=== PATIENT | male | born 1995 | race Caucasian/White ===

== ENCOUNTER 2019-11-30 12:32 | Inpatient (IN) | payer SELFPAY ==
[2019-11-30 12:33] VITALS: BMI 22.9
--- NOTE | 2019-11-30 12:38 | ED_ITS ---
Entered by Marlene Bahena, acting as scribe for HPI - Psych General: Chief Complaint: Psychiatric Symptoms Stated Complaint: SI/ ATTEMPT TO HARM Time Seen by Provider: 11/30/19 12:38 Source: patient and EMS Mode of arrival: EMS Limitations: no limitations History of Present Illness: HPI Narrative: 24 yo male presents with plans that he does not want to live any more. pt states he has had depression. pt states this started months ago. pt has cuts to R arm and R wrist. pt has been seen in the hospital for the same symptoms recently. pt denies any other symptoms at this time. pt states last alcohol use was 2 days ago. MD complaint: suicidal ideation and feels depressed Onset (ago): month(s) (states been months) Duration: constant History of same: Yes Relieving factors: none Exacerbating factors: none Context: recent alcohol abuse Associated psychiatric symptoms: depression and suicidal ideation Associated symptoms: Reports suicidal ideation (cuts to R wrist and R arm ) Treatments prior to arrival: none Review of Systems General: Reports: 10 or more systems reviewed and unremarkable except in HPI and below Psych: Reports: suicidal ideation (cuts to R wrist and R arm ) PFSH ED PFSH: Statuses (acute, chronic, etc) shown below reflect problem list status as previously entered and may not be historically accurate Social History Smoking and tobacco status: current some day smoker Physical Exam Const: COMMON NORMALS: no apparent distress, average body habitus, oriented x3, no limitations, healthy appearing, alert and well nourished HENMT: COMMON NORMALS: normocephalic, head/scalp atraumatic, hearing grossly normal bilaterally, external ears normal, EAC's normal, TM's normal bilaterally, external nose normal, nasal mucous membranes and turbinates normal, moist oral mucous membranes, oropharynx normal, dentition normal and gingiva normal HEAD & SCALP: normocephalic and atraumatic NOSE: external nose normal and nasal mucous membranes and turbinates normal EXTERNAL EAR: Yes external ears normal EXTERNAL AUDITORY CANAL: EAC's normal TYMPANIC MEMBRANE: TM's normal bilaterally Eye: COMMON NORMALS: PERRL, EOMs intact bilaterally, conjunctivae normal, no scleral icterus, no papilledema, normal visual lockhart by confrontation and fundi normal bilaterally CONJUNCTIVA: Yes conjunctivae normal PUPIL: Yes PERRL DIRECT OPHTHALMOSCOPY: Yes no papilledema and Yes fundi normal bilaterally Neck/C-Spine: COMMON NORMALS: full ROM, no lymphadenopathy, supple, no me ningeal signs, no JVD, thyroid normal and no carotid bruits THYROID: thyroid normal Chest: COMMONS NORMALS: inspection of chest normal and palpation of chest normal Resp: COMMON NORMALS: normal respiratory effort, no retractions, no use of accessory muscles, clear to auscultation bilaterally and percussion normal AUSCULTATION: clear to auscultation bilaterally PERCUSSION: percussion normal Cardio: COMMON NORMALS: no JVD, regular rate, regular rhythm, S1 normal heart sound, S2 normal heart sound, no gallops, no clicks, no murmurs, no rub and peripheral pulses 2+ throughout RATE: regular rate RHYTHM: regular rhythm HEART SOUNDS: S1 normal and S2 normal PERIPHERAL PULSES: pulses 2+ throughout GI: COMMON NORMALS: normal to inspection, nondistended, normoactive bowel sounds, soft to palpation, non-tender, no hepatosplenomegaly, no masses and no bruits PALPATION: Yes soft and Yes no hepatosplenomegaly : COMMON NORMALS: Yes no CVA tenderness BLADDER/KIDNEY EXAM: Yes no CVA tenderness Back/Pelvis: COMMON NORMALS: no CVA tenderness, thoracic and lumbar spine normal to inspection, no thoracic nor lumbar tenderness, thoraco-lumbar ROM normal and straight leg raise negative bilaterally Extremity: COMMON NORMALS: normal to inspection, full ROM, normal capillary refill, no joint enlargement, no clubbing, cyanosis or edema, no calf tenderness and no pedal edema Neuro: COMMON NORMALS: oriented x3 SENSORIUM/ORIENTATION: Yes alert MENINGEAL SIGNS: Yes no meningeal signs Psych: COMMON NORMALS: thought process normal and speech normal ATTITUDE: Yes calm ACTIVITY/MOTOR BEHAVIOR: Yes fidgeting SPEECH: Yes normal speech MOOD & AFFECT: Yes depressed mood THOUGHT PROCESS: normal thought process Skin: COMMON NORMALS: no rashes or lesions noted, no wounds, skin turgor normal, no jaundice, no petechiae and no mottling GENERAL SKIN EXAM: no rashes or lesions noted and turgor normal MDM - Psych Lab Data: Labs: Lab Results 11/30/19 11/30/19 11/30/19 Range/Units 12:48 12:48 12:52 WBC 18.3 H (4.0-10.0) 10^3/ uL RBC 5.15 (4.1-5.3) 10^6/u L Hgb 15.9 (11.7-16.6) g/dL Hct 47.2 (42.0-52.0) % MCV 91.7 (80-94) fL MCH 30.9 (28.0-34.0) pg MCHC 33.7 (30.0-36.0) g/dL RDW 14.8 (12.1-15.1) % Plt Count 308 (130-400) 10^3/c mm MPV 10.1 (7.4-10.4) fL Neut % (Auto) 68.8 % Lymph % (Auto) 18.5 % [place] % (Auto) 8.7 % Eos % (Auto) 0.8 % Baso % (Auto) 0.8 % Neut # (Auto) 12.6 H (1.8-7.7) 10^3/u L Lymph # (Auto) 3.4 (0.8-4.8) 10^3/u L [place] # (Auto) 1.6 H (0.2-0.9) 10^3/u L Eos # (Auto) 0.2 (0.0-0.8) 10^3/u L Baso # (Auto) 0.1 (0.0-0.1) 10^3/u L Nucleated RBC % (a uto) 0 % Nucleated RBCs # 0.0 /100WBC Sodium (136-145) mmol/L Potassium (3.5-5.1) mmol/L Chloride (98-107) mmol/L Carbon Dioxide (22-29) mmol/L Anion Gap (5-19) BUN (6-20) mg/dL Creatinine (0.7-1.2) mg/dL GFR Calculation (90-130) mL/min Glucose (74-109) mg/dL Calcium (8.6-10.0) mg/Dl Total Bilirubin (0.15-1.2) mg/dL AST (0-40) U/L ALT (0-41) U/L Alkaline Phosphata se (40-130) IU/L Total Protein (6.6-8.7) g/dL Albumin (3.5-5.2) g/dL Globulin (1.3-4.6) g/dL TSH (0.27-4.20) uIU/ mL Urine Color Straw (Yellow) Urine Appearance Clear (CLEAR) Urine pH 6.5 (5-7) Ur Specific Gravit y 1.005 (1.005-1.030) Urine Protein Neg (Negative) Urine Glucose (UA) Norm (Normal) Urine Ketones Negative (Negative) Urine Occult Blood Neg (Negative) Urine Nitrate Negative (Negative) Urine Bilirubin Neg (NEGATIVE) Urine Urobilinogen Norm (Negative) mg/dL Ur Leukocyte Marsha ase Negative (Negative) Salicylates (3-10) mg/dL Urine Opiates Scre en Negative (Negative) ng/mL Acetaminophen (10-30) ug/mL Ur Barbiturates Sc reen Negative (Negative) ng/mL Ur Phencyclidine S crn Negative (Negative) ng/mL Ur Amphetamines Sc reen Negative (Negative) ng/mL U Benzodiazepines Scrn Negative (Negative) ng/mL Urine Cocaine Scre en Negative (Negative) ng/mL U Marijuana (THC) Screen Negative (Negative) ng/mL Ethyl Alcohol (0-10) mg/dL 11/30/19 11/30/19 Range/Units 12:52 16:29 WBC (4.0-10.0) 10^3/ uL RBC (4.1-5.3) 10^6/u L Hgb (11.7-16.6) g/dL Hct (42.0-52.0) % MCV (80-94) fL MCH (28.0-34.0) pg MCHC (30.0-36.0) g/dL RDW (12.1-15.1) % Plt Count (130-400) 10^3/c mm MPV (7.4-10.4) fL Neut % (Auto) % Lymph % (Auto) % [place] % (Auto) % Eos % (Auto) % Baso % (Auto) % Neut # (Auto) (1.8-7.7) 10^3/u L Lymph # (Auto) (0.8-4.8) 10^3/u L [place] # (Auto) (0.2-0.9) 10^3/u L Eos # (Auto) (0.0-0.8) 10^3/u L Baso # (Auto) (0.0-0.1) 10^3/u L Nucleated RBC % (a uto) % Nucleated RBCs # /100WBC Sodium 140 (136-145) mmol/L Potassium 3.9 (3.5-5.1) mmol/L Chloride 100 (98-107) mmol/L Carbon Dioxide 27 (22-29) mmol/L Anion Gap 16.9 (5-19) BUN 10 (6-20) mg/dL Creatinine 0.8 (0.7-1.2) mg/dL GFR Calculation 116.9 (90-130) mL/min Glucose 100 (74-109) mg/dL Calcium 9.5 (8.6-10.0) mg/Dl Total Bilirubin 0.2 (0.15-1.2) mg/dL AST 40 (0-40) U/L ALT 47 H (0-41) U/L Alkaline Phosphata se 111 (40-130) IU/L Total Protein 8.8 H (6.6-8.7) g/dL Albumin 5.3 H (3.5-5.2) g/dL Globulin 3.5 (1.3-4.6) g/dL TSH 1.20 (0.27-4.20) uIU/ mL Urine Color (Yellow) Urine Appearance (CLEAR) Urine pH (5-7) Ur Specific Gravit y (1.005-1.030) Urine Protein (Negative) Urine Glucose (UA) (Normal) Urine Ketones (Negative) Urine Occult Blood (Negative) Urine Nitrate (Negative) Urine Bilirubin (NEGATIVE) Urine Urobilinogen (Negative) mg/dL Ur Leukocyte Marsha ase (Negative) Salicylates < 0.3 L (3-10) mg/dL Urine Opiates Scre en (Negative) ng/mL Acetaminophen < 5.0 L (10-30) ug/mL Ur Barbiturates Sc reen (Negative) ng/mL Ur Phencyclidine S crn (Negative) ng/mL Ur Amphetamines Sc reen (Negative) ng/mL U Benzodiazepines Scrn (Negative) ng/mL Urine Cocaine Scre en (Negative) ng/mL U Marijuana (THC) Screen (Negative) ng/mL Ethyl Alcohol 352 H* 279 H (0-10) mg/dL Discharge Plan Discharge Prescriptions: No Action Seroquel 300 mg tablet 300 mg PO BEDTIME RF: 0 sertraline 100 mg tablet 200 mg PO DAILY RF: 0 Seroquel 100 mg tablet 100 mg PO DAILY RF: 0 cyproheptadine 4 mg tablet 4 mg PO BEDTIME PRN (Reason: unknown) RF: 0 gabapentin 300 mg capsule 300 mg PO TID RF: 0 mirtazapine 15 mg tablet 15 mg PO BEDTIME RF: 0 Seroquel 50 mg tablet 50 mg PO BID PRN (Reason: UNKNOWN) RF: 0 Coding Level of Care Code ED Manager Content for Chg Fwd Exam Problem Focused The documentation recorded by the Josef shi Bridget Annette, accurately reflects the service I personally performed and the decisions made by Dennis shields Donald P, DO Nov 30, 2019 12:32
[2019-11-30 12:44] VITALS: BP 130/78; PULSE 98; RESP 16; TEMP 36.8; O2SAT 97
[2019-11-30 13:00] LABS: Basophils # 0.1 10^3/uL (0.0-0.1); Basophils % 0.8 %; Eosinophils # 0.2 10^3/uL (0.0-0.8); Eosinophils % 0.8 %; Hematocrit 47.2 % (42.0-52.0); Hemoglobin 15.9 g/dL (11.7-16.6); Lymphocytes # 3.4 10^3/uL (0.8-4.8); Lymphocytes % 18.5 %; Mean Corpuscular HGB Conc 33.7 g/dL (30.0-36.0); Mean Corpuscular Hemoglobin 30.9 pg (28.0-34.0); Mean Corpuscular Volume 91.7 fL (80-94); Mean Platelet Volume 10.1 fL (7.4-10.4); Monocytes # 1.6 10^3/uL (0.2-0.9); Monocytes % 8.7 %; Neutrophils # 12.6 10^3/uL (1.8-7.7); Neutrophils % 68.8 %; Nucleated Red Blood Cells % 0 %; Platelet Count 308 10^3/cmm (130-400); Red Blood Count 5.15 10^6/uL (4.1-5.3); Red Cell Distribution Width 14.8 % (12.1-15.1); White Blood Count 18.3 10^3/uL (4.0-10.0)
[2019-11-30 13:00] LABS: Add Urine Microscopic? NO
[2019-11-30 13:02] LABS: Bilirubin Urine Neg (NEGATIVE); Blood Urine Neg (Negative); Glucose Urine UA Norm (Normal); Ketones Urine Negative (Negative); Leukocyte Esterase Urine Negative (Negative); Nitrate Urine Negative (Negative); Protein Urine Neg (Negative); Specific Gravity, Urine 1.005 (1.005-1.030); Urine Appearance Clear (CLEAR); Urine Color Straw (Yellow); Urobilinogen Urine Norm (Negative); pH Urine 6.5 (5-7)
[2019-11-30 13:17] LABS: Amphetamines Screen Urine Negative (Negative); Barbiturates Screen Urine Negative (Negative); Benzodiazepines Screen Urine Negative (Negative); Cocaine Screen Urine Negative (Negative); Opiate Screen Urine Negative (Negative); PCP Screen Urine Negative (Negative); THC Screen Urine Negative (Negative)
[2019-11-30 13:27] LABS: Alanine Aminotransferase 47 U/L (0-41); Albumin Level 5.3 g/dL (3.5-5.2); Alkaline Phosphatase 111 IU/L (40-130); Anion Gap 16.9 (5-19); Aspartate Amino Transferase 40 U/L (0-40); Blood Urea Nitrogen 10 mg/dL (6-20); Calcium 9.5 mg/Dl (8.6-10.0); Carbon Dioxide 27 mmol/L (22-29); Chloride 100 mmol/L (98-107); Globulin 3.5 g/dL (1.3-4.6); Glomerular Filtration Rate 116.9 mL/min (90-130); Glucose 100 mg/dL (74-109); Potassium 3.9 mmol/L (3.5-5.1); Sodium 140 mmol/L (136-145); Total Bilirubin 0.2 mg/dL (0.15-1.2); Total Protein 8.8 g/dL (6.6-8.7)
[2019-11-30 13:30] LABS: Acetaminophen < 5.0 ug/mL (10-30); Salicylate < 0.3 mg/dL (3-10)
[2019-11-30 13:31] LABS: Alcohol Level 352 mg/dL (0-10)
[2019-11-30] MEDS: sodium chloride 0.9% 1,000 ML 999 ML IV ×2 (14:38→15:54)
[2019-11-30 16:54] LABS: Alcohol Level 279 mg/dL (0-10)
[2019-11-30 17:14] VITALS: BP 125/84; PULSE 101; RESP 19; TEMP 36.4; O2SAT 98
[2019-11-30 18:22] VITALS: BP 130/78; PULSE 95; RESP 16; O2SAT 97
[2019-11-30] MEDS: quetiapine 100 mg Tablet 300 MG PO (23:02)
[2019-12-01 06:00] VITALS: BP 122/74; PULSE 93; RESP 19; TEMP 36.8; O2SAT 97
[2019-12-01] MEDS: folic acid 1 mg Tablet PO (08:39)
[2019-12-01] MEDS: quetiapine 100 mg Tablet PO (08:39)
[2019-12-01] MEDS: thiamine 100 mg Tablet PO (08:39)
[2019-12-01] MEDS: multivitamin therapeutic Tablet 1 TAB PO (08:39)
--- NOTE | 2019-12-01 13:12 | P.HP_ITS ---
Providers/Chief Complaint Admitting Physician: Jamie Aguilar MD Chief Complaint: SI/ ATTEMPT TO HARM HPI NPU History of Present Illness Agus Saravia is a 24 year old male who presents today reporting that he is really down and out and is been struggling for some time now. He reports that living in a homeless long-term in [place] and is possibly wanting to go back there. His story was somewhat disjointed. But he eventually came to the acknowledgment that drinking has been extremely problematic in his life. At the end of the day when he ended up with something working well somehow drinking was involved. He is on medication for his mental health challenges but he is yet to figure out how to stop drinking. We discussed the risks benefits and alternatives of giving a trial of naltrexone and he understood and agreed to proceed as is documented in this note. Psychiatric history: He is at least 9 hospitalizations at [facility] in a couple in other locations. He has been on multiple different medications. Substance abuse history: Smokes about a pack of cigarettes a day. Drinks about a pint of alcohol a day if not more. Denies marijuana, cocaine methamphetamine or any other illicit drugs. He has been to [facility] before. his BAL was 352 and reports that he has had a recorded BAL of as high as 644. Family history: He endorses having mental health issues and addiction issues on his mother's side. He reports that there have been suicide attempts in his family he denies any suicide attempts himself. Developmental history: He reports that his mother's and delivery of him were unremarkable. He learned to walk and talk and met his developmental milestones on time. He did not need speech therapy learning support emotional support or special education classes however he reports that he was homeschooled and never took the final exam for graduation. Psychosocial history: He reports his mother and father were together when he was born and that he has an older brother from the same to parents. He does not believe there are any other siblings or half siblings out of there. He reports his childhood was crazy but cannot really define what that meant. He denies emotional, physical or sexual abuse. He endorses being a heterosexual with his longest relationship being 4-1/2 years. He is never been , has never had children, has never been in the and he denies any significant adventist belief system. He reports he works at [employer] for about 4 years. He is currently basically homeless. Legal history: He reports that he has been in [facility] on a few occasions. Meds NPU Home Medications Medication Instructions Recorded Confirmed Type cyproheptadine 4 mg PO BEDTIME PRN 11/30/19 11/30/19 History gabapentin 300 mg PO TID 11/30/19 11/30/19 History mirtazapine 15 mg PO BEDTIME 11/30/19 11/30/19 History quetiapine [Seroquel] 50 mg PO BID PRN 11/30/19 11/30/19 History quetiapine [Seroquel] 100 mg PO DAILY 11/30/19 11/30/19 History quetiapine [Seroquel] 300 mg PO BEDTIME 11/30/19 11/30/19 History sertraline 200 mg PO DAILY 11/30/19 11/30/19 History Allergies Allergy/AdvReac Type Severity Reaction Status Date / Time No Known Allergies Allergy Verified 11/30/19 12:43 PFSH NPU PFSH: Statuses (acute, chronic, etc) shown below reflect problem list status as previously entered and may not be historically accurate Social History Smoking and tobacco status: current some day smoker Mental Status Exam MSE Comments: This is a well-nourished well-developed white male with adequate dress grooming and eye contact. No abnormal movements except for psychomotor retardation. Cooperative with exam in occasional mild distress. Speech was decreased rate and volume. Mood described as depressed, affect occasionally tearful. Thought process organized. Thought content: Patient denied any suicidal or homicidal ideation, there were no delusions reported or noted, he denied any auditory or visual hallucinations. Attention and concentration were intact and memory appeared reliable but none were formally tested. He is alert and oriented x3. Insight and judgment are fair impulse control is limited. Vitals/I&O/Wt Last Vital Signs Temp 98.5 F 12/01/19 14:00 Pulse 105 H 12/01/19 14:00 Resp 18 12/01/19 14:00 BP 121/81 12/01/19 14:00 Pulse Ox 97 12/01/19 14:00 Weight last 48 hrs Weight 72.575 kg A&P Assessment and plan (1) Depressive disorder: This is a 24-year-old white male with a long history of mental health and addiction issues specifically alcohol addiction which he is yet to get under control which is caused significant sequelae in his life and led to him present ing feeling despondent. 1. Continue current medication. Except: 2. Start naltrexone 50 mg p.o. daily. 3. Encourage individual group and milieu therapy. 4. Continue to 15-minute checks for safety. 5. Encourage discharge to sober living treatment at the highest level to which she is willing to commit. Status: Acute Code(s): F32.9 - Major depressive disorder, single episode, unspecified (2) Alcohol abuse with intoxication: Status: Acute Code(s): F10.129 - Alcohol abuse with intoxication, unspecified Involuntary Hold Information 96 Hour Hold: 96 Hour Involuntary Admission: No Attestations NPU Medical Necessity Statement*: Inpatient hospitalization is medically necessary and the clinically appropriate intervention at this time. We will monitor medications and titrate to effect. Likely length of stay 3 to 5 days. Coding Level of Care Code Acute Compliance Review Officer for Jonny Matias Diagnoses Depressive disorder F32.9 Alcohol abuse with intoxication F10.129
[2019-12-01 14:00] VITALS: BP 121/81; PULSE 105; RESP 18; TEMP 36.9; O2SAT 97
[2019-12-01] MEDS: naltrexone hcl 50 mg Tablet PO (19:03)
[2019-12-01] MEDS: acetaminophen 325 mg Tablet 650 MG PO (19:05)
[2019-12-01 19:54] VITALS: BP 124/83; PULSE 88; RESP 23; TEMP 37.2; O2SAT 97
[2019-12-01] MEDS: mirtazapine 15 mg Tablet PO (21:02)
[2019-12-01] MEDS: quetiapine 100 mg Tablet 300 MG PO (21:02)
[2019-12-01] MEDS: gabapentin 300 mg Capsule PO (21:02)
[2019-12-02 06:00] VITALS: BP 119/80; PULSE 78; RESP 20; TEMP 36.6; O2SAT 97
[2019-12-02] MEDS: acetaminophen 325 mg Tablet 650 MG PO (07:44)
[2019-12-02] MEDS: quetiapine 100 mg Tablet PO (09:19)
[2019-12-02] MEDS: multivitamin therapeutic Tablet 1 TAB PO (09:19)
[2019-12-02] MEDS: folic acid 1 mg Tablet PO (09:19)
[2019-12-02] MEDS: naltrexone hcl 50 mg Tablet PO (09:19)
[2019-12-02] MEDS: sertraline 100 mg Tablet 200 MG PO (09:20)
[2019-12-02] MEDS: thiamine 100 mg Tablet PO (09:20)
[2019-12-02 13:59] VITALS: BP 116/83; PULSE 95; RESP 20; TEMP 36.7; O2SAT 98
[2019-12-02] MEDS: hyDROXYzine 25 mg Capsule 50 MG PO (15:27)
--- NOTE | 2019-12-02 15:54 | PC.NURSE ---
PT NOTE: ENTRY FOR 12/02/19 1527 PT GIVEN PRN VISTARIL 50MG FOR ANXIETY
--- NOTE | 2019-12-02 15:58 | PC.NURSE ---
PT NOTE: PATIENT ANXIETY LEVEL APPEARS TO BE SOMEWHAT BETTER SINCE SEEING THE DOCTOR.
--- NOTE | 2019-12-02 16:08 | PM.NDC ---
Diagnoses at Discharge Discharge Diagnosis (1) Depressive disorder: Status: Acute (2) Alcohol abuse with intoxication: Status: Acute Reason for Visit Reason for Visit: Reason For Visit: SI/ ATTEMPT TO HARM Brief History: HPI NPU History of Present Illness Agus Saravia is a 24 year old male who presents today reporting that he is really down and out and is been struggling for some time now. He reports that living in a homeless [facility] in [place] and is possibly wanting to go back there. His story was somewhat disjointed. But he eventually came to the acknowledgment that drinking has been extremely problematic in his life. At the end of the day when he ended up with something working well somehow drinking was involved. He is on medication for his mental health challenges but he is yet to figure out how to stop drinking. We discussed the risks benefits and alternatives of giving a trial of naltrexone and he understood and agreed to proceed as is documented in this note. Psychiatric history: He is at least 9 hospitalizations at [facility] in a couple in other locations. He has been on multiple different medications. Substance abuse history: Smokes about a pack of cigarettes a day. Drinks about a pint of alcohol a day if not more. Denies marijuana, cocaine methamphetamine or any other illicit drugs. He has been to [facility] before. his BAL was 352 and reports that he has had a recorded BAL of as high as 544. Family history: He endorses having mental health issues and addiction issues on his mother's side. He reports that there have been suicide attempts in his family he denies any suicide attempts himself. Developmental history: He reports that his mother's and delivery of him were unremarkable. He learned to walk and talk and met his developmental milestones on time. He did not need speech therapy learning support emotional support or special education classes however he reports that he was homeschooled and never took the final exam for graduation. Psychosocial history: He reports his mother and father were together when he was born and that he has an older brother from the same to parents. He does not believe there are any other siblings or half siblings out of there. He reports his childhood was crazy but cannot really define what that meant. He denies emotional, physical or sexual abuse. He endorses being a heterosexual with his longest relationship being 4-1/2 years. He is never been , has never had children, has never been in the and he denies any significant faith belief system. He reports he works at [employer] for about 4 years. He is currently basically homeless. Legal history: He reports that he has been in residential on a few occasions. Hospital Course Hospital Course Agus presented to the emergency room endorsing lethality, depression and struggling with his active alcohol use disorder. He was admitted to the neuro psych unit and quickly acclimated to the individual, group and milieu therapies provided. His extensive outpatient medications were continued and after discussion of the risks benefits and alternatives he agreed to a trial of naltrexone to assist with his drinking. There were no noted side effects or problems with the initiation of the medication. During the hospitalization he had routine laboratory studies which were within normal limits except for a few outliers. Additionally he had a general medical evaluation which was within normal limits and revealed no new acute processes outside of intoxication. Discharge Summary At the time of discharge he denied lethality, in endorsed optimism and improvement in his mood and a plan to utilize the referral to [facility] for definitive treatment of his addiction. He was evaluated and deemed to be absent credible lethality and had received the maximum benefit from an inpatient hospitalization so he was discharged. Involuntary Hold Information 96 Hour Hold: 96 Hour Involuntary Admission: No Mental Status Exam MSE Comments: This is a well-nourished well-developed white male with adequate dress grooming and eye contact. No abnormal movements except for improving psychomotor retardation. Cooperative with exam in no acute distress. Speech was normal rate and volume. Mood described as better/optimistic, affect congruent. Thought process organized. Thought content: Patient denied any suicidal or homicidal ideation, there were no delusions reported or noted, he denied any auditory or visual hallucinations. Attention and concentration were intact and memory appeared reliable but none were formally tested. He is alert and oriented x3. Insight and judgment are fair, impulse control is improving. Discharge Data Vitals: Last Vital Signs Temp 98.1 F 12/02/19 13:59 Pulse 95 12/02/19 13:59 Resp 20 H 12/02/19 13:59 BP 116/83 12/02/19 13:59 Pulse Ox 98 12/02/19 13:59 Discharge Plan Discharge Patient Disposition: Home, Self-Care Condition: Stable Prescriptions: New naltrexone 50 mg Tablet 50 mg PO DAILY 30 Days Qty: 30 RF: 0 Continued Seroquel 300 mg tablet 300 mg PO BEDTIME RF: 0 sertraline 100 mg tablet 200 mg PO DAILY RF: 0 Seroquel 100 mg tablet 100 mg PO DAILY RF: 0 cyproheptadine 4 mg tablet 4 mg PO BEDTIME PRN (Reason: unknown) RF: 0 gabapentin 300 mg capsule 300 mg PO TID RF: 0 mirtazapine 15 mg tablet 15 mg PO BEDTIME RF: 0 Seroquel 50 mg tablet 50 mg PO BID PRN (Reason: UNKNOWN) RF: 0 Discharge Orders: Discharge Order (Routine); Ordered 12/02/19 Ordered By: Jamie Aguilar Referrals: Dean Sky MD [Physician] - 12/21/19 10:00 am Activity Restrictions/Additional Instructions: Contact [facility] daily about getting a bed at their facility for treatment/outpatient until you can get in [facility] [phone] [facility] [address] [place] [address] AA metings: Friday: 3:00 p.m. @ [facility] conference room address: [address], [place] [address] contact Eyug [phone] 7:00 p.m. @ [address] [place] [address] Friday: 7:00 p.m. @ [address] [place] [address] Friday 6:00 p.m. @ [facility] Address: [address] [place] [address] contact: [phone] Friday 7:00 p.m. @ [address] [place] [address] 11:00 a.m. @ [place] [address] [place] [address] contact [phone] 7:00 p.m. @ [address] in [facility] Friday 7:00 p.m. @ [address] [place] [address] Friday 7:00 p.m. @ [address] [place] [address] Discharge Date/Time: 12/02/19 16:45 Discharge Attestations NPU Time Spent in Discharge Care*: less than 30 min Specific Discharge Activities: Specific discharge activities: educating patient, discussing with rn case mgr/social workers/dc planners, documenting/other paperwork and evaluating patient/reviewing data Coding Level of Care Code Acute Vat Packer for [facility] Fwd Diagnoses Depressive disorder F32.9 Alcohol abuse with intoxication F10.129
== END 2019-12-02 16:45 | disposition home or self-care (01) | DRG 897 ==
LOC: ER 13:08 → NP 17:44
PROVIDERS: Admitting Provider Psychiatry & Neurology Psychiatry; Emergency Provider Family Medicine; Visit Provider Psychiatry & Neurology Psychiatry
DX: F10.229 Alcohol dependence with intoxication, unspecified (principal); Y90.8 Blood alcohol level of 240 mg/100 ml or more; F32.9 Major depressive disorder, single episode, unspecified; Z59.0 Homelessness; F17.210 Nicotine dependence, cigarettes, uncomplicated
CPT/HCPCS: 36415; 80053; 80307; 81003; 84443; 85025; 99284; J7030